=== PATIENT | male | born 1970 | race Caucasian/White ===

== ENCOUNTER 2018-08-21 18:11 | Emergency (ER) | payer OTHER ==
[2018-08-21 19:36] LABS: ABSOLUTE EOSINOPHILS # (AUTO) 0.3 10^3/uL (0.0-0.6); ABSOLUTE LYMPHOCYTES (AUTO) 1.7 10^3/uL (0.5-4.7); ABSOLUTE MONOCYTES (AUTO) 0.6 10^3/uL (0.1-1.4); ABSOLUTE NEUT (AUTO) 5.2 10^3/uL (1.7-8.2); BASOPHILS % (AUTO) 0.6 % (0-2); EOSINOPHILS % (AUTO) 3.3 % (0-6); HEMATOCRIT 40.7 % (37.9-51.0); HEMOGLOBIN 13.9 g/dL (13.5-17.0); LYMPHOCYTES % (AUTO) 22.1 % (13-45); MEAN CORPUSCULAR HEMOGLOBIN 31.5 pg (27.0-33.4); MEAN CORPUSCULAR HGB CONC 34.3 g/dL (32.0-36.0); MEAN CORPUSCULAR VOLUME 92 fl (80-97); MONOCYTES % (AUTO) 7.7 % (3-13); PLATELET COUNT 290 10^3/uL (150-450); RED BLOOD COUNT 4.43 10^6/uL (4.35-5.55); RED CELL DISTRIBUTION WIDTH 12.8 % (11.5-14.0); SEGMENTED NEUTROPHILS % (AUTO) 66.3 % (42-78); TOTAL CELLS COUNTED % (AUTO) 100 %; WHITE BLOOD COUNT 7.8 10^3/uL (4.0-10.5)
[2018-08-21 19:37] LABS: INTERNATIONAL RATION (INR) 0.93; PARTIAL THROMBOPLASTIN TIME 24.5 SEC (23.5-35.8)
[2018-08-21 19:46] LABS: ANION GAP 8 (5-19); BLOOD UREA NITROGEN 18 mg/dL (7-20); CALCIUM 10.2 mg/dL (8.4-10.2); CARBON DIOXIDE 28 mmol/L (22-30); CHLORIDE 106 mmol/L (98-107); GLUCOSE 88 mg/dL (75-110); POTASSIUM 3.8 mmol/L (3.6-5.0)
[2018-08-21 19:47] LABS: ALANINE AMINOTRANSFERASE 40 U/L (21-72); ALBUMIN 4.5 g/dL (3.5-5.0); ALKALINE PHOSPHATASE 53 U/L (38-126); ASPARTATE AMINO TRANSFERASE 35 U/L (17-59); BILIRUBIN,DIRECT 0.4 mg/dL (0.0-0.4); BILIRUBIN,TOTAL 0.6 mg/dL (0.2-1.3)
[2018-08-21 19:48] LABS: TOTAL PROTEIN 7.1 g/dL (6.3-8.2)
--- NOTE | 2018-08-21 19:59 | RADIOLOGY REPORT (SQ) ---
EXAM DESCRIPTION: CT CERVICAL SPINE WITHOUT COMPLETED DATE/TIME: 08/21/2018 7:36 pm REASON FOR STUDY: FALL, INJURY COMPARISON: None. TECHNIQUE: Axial images acquired through the cervical spine without intravenous contrast. Images re viewed with lung, soft tissue and bone windows. Reconstructed coronal and sagittal MPR images review ed. Images stored on PACS. All CT scanners at this facility use dose modulation, iterative reconstruction, and/or weight based d osing when appropriate to reduce radiation dose to as low as reasonably achievable (ALARA). [facility]: Dose Right [facility]: CareDose [facility]: Dose Right [facility]: Teradose 4D [facility]: [employer] RADIATION DOSE: mGy. LIMITATIONS: None. FINDINGS: ALIGNMENT: Anatomic. MINERALIZATION: Normal. VERTEBRAL BODIES: No fractures or dislocation. DISCS: Multilevel disc space narrowing with osteophytes. FACETS, LATERAL MASSES, POSTERIOR ELEMENTS: Facet arthropathy. No fractures. No dislocation. No ac jose findings. HARDWARE: None in the spine. VISUALIZED RIBS: No fractures. LUNG APICES AND SOFT TISSUES: No significant or acute findings. OTHER: No other significant finding. IMPRESSION: CHRONIC DEGENERATIVE CHANGES. NO ACUTE FINDINGS. TECHNICAL DOCUMENTATION: JOB ID: [id number] Quality ID # [id number]: Final reports with documentation of one or more dose reduction techniques (e.g., Au tomated exposure control, adjustment of the mA and/or kV according to patient size, use of iterative reconstruction technique) 2010 [employer]- All Rights Reserved Reading location - IP/workstation name: [email or web address]
--- NOTE | 2018-08-21 20:06 | RADIOLOGY REPORT (SQ) ---
EXAM DESCRIPTION: CT HEAD WITHOUT COMPLETED DATE/TIME: 08/21/2018 7:35 pm REASON FOR STUDY: FALL, INJURY COMPARISON: None. TECHNIQUE: Axial images acquired through the brain without intravenous contrast. Images reviewed wi th bone, brain and subdural windows. Images stored on PACS. All CT scanners at this facility use dose modulation, iterative reconstruction, and/or weight based d osing when appropriate to reduce radiation dose to as low as reasonably achievable (ALARA). [facility]: Dose Right [facility]: CareDose [facility]: Dose Right [facility]: Teradose 4D [facility]: [employer] RADIATION DOSE: mGy. LIMITATIONS: None. FINDINGS: VENTRICLES: Normal size and contour. CEREBRUM: No masses. No hemorrhage. No midline shift. No evidence for acute infarction. Normal gra y/white matter differentiation. No areas of low density in the white matter. CEREBELLUM: No masses. No hemorrhage. No alteration of density. No evidence for acute infarction. EXTRAAXIAL SPACES: No fluid collections. No masses. ORBITS AND GLOBE: No intra- or extraconal masses. Normal contour of globe without masses. CALVARIUM: No fracture. PARANASAL SINUSES: No fluid. Ethmoid and maxillary mucous retention cyst- mucosal thickening. SOFT TISSUES: Frontal swelling -laceration. OTHER: No other significant finding. IMPRESSION: No intracranial hemorrhage or fracture. Frontal swelling -laceration. No radiopaque fo reign body.Ethmoid and maxillary mucous retention cyst- mucosal thickening. EVIDENCE OF ACUTE STROKE: NO. COMMENT: Quality ID # 436: Final reports with documentation of one or more dose reduction techniques (e.g., Automated exposure control, adjustment of the mA and/or kV according to patient size, use of iterative reconstruction technique) TECHNICAL DOCUMENTATION: JOB ID: [id number] [place]-72 2010 [employer]- All Rights Reserved Reading location - IP/workstation name: [email or web address]
[2018-08-21] MEDS ORDERED: LIDOCAINE 1%/EPINEPHRINE INJ 20 ML VIAL INJ ONE (20:07)
[2018-08-21] MEDS ORDERED: DIPH/PERTUSS(ACELL)/TETANUS VAC/PF 0.5 ML SYR (>=10YO) IM ONE (22:23)
[2018-08-21] MEDS ORDERED: SULFAMETHOXAZOLE/TRIMETHOPRIM 800-160 MG TABLET PO ONE (22:25)
[2018-08-21] MEDS ORDERED: CEPHALEXIN 500 MG CAPSULE PO ONE (22:25)
--- NOTE | 2018-08-21 23:02 | RADIOLOGY REPORT (SQ) ---
EXAM DESCRIPTION: XR ELBOW 3 VIEWS, XR FOREARM 2 VIEWS, XR HUMERUS COMPLETED DATE/TME: 08/21/2018 00:00 CLINICAL HISTORY: Pain. 47 years Male, FALL COMPARISON: None. Findings: Mild swelling/bursitis at the right ulnar olecranon. Minimal osteoarthritis. Bones, joints, and soft tissues of the RIGHT XR ELBOW 3 VIEWS, XR FOREARM 2 VIEWS, XR HUMERUS appear otherwise unremarkable. IMPRESSION: Mild swelling/bursitis at the right ulnar olecranon.
--- NOTE | 2018-08-21 23:05 | RADIOLOGY REPORT (SQ) ---
EXAM DESCRIPTION: XR TIBIA FIBULA 2 VIEWS COMPLETED DATE/TME: 08/21/2018 00:00 CLINICAL HISTORY: Pain. 47 years Male, FALL COMPARISON: None. Findings: Screw fixation at the proximal right tibia. Mild swelling at the anterior right lower leg. Moderate tricompartmental osteoarthritis of the right knee. Bones, joints, and soft tissues of the RIGHT XR TIBIA FIBULA 2 VIEWS appear otherwise unremarkable. IMPRESSION: Swelling.
[2018-08-21 23:26] VITALS: BP 156/87
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
== END 2018-08-21 23:34 | disposition home or self-care (01) ==
LOC: ER 18:11
DX: S09.90XA Unspecified injury of head, initial encounter (principal); S01.81XA Laceration without foreign body of other part of head, initial encounter; S46.311A Strain of muscle, fascia and tendon of triceps, right arm, initial encounter; S81.831A Puncture wound without foreign body, right lower leg, initial encounter; W11.XXXA Fall on and from ladder, initial encounter; Z91.013 Allergy to seafood; Z23 Encounter for immunization
CPT/HCPCS: 99284; 90471; 36415; 85025; 85610; 85730; 80053; 73080; 73090; 73060; 73590; 70450; 72125; 90715; 12013; L0120; J3490

== ENCOUNTER 2018-08-30 08:42 | Emergency (ER) | payer OTHER ==
[2018-08-30 08:46] VITALS: BP 130/80
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
== END 2018-08-30 09:32 | disposition home or self-care (01) ==
LOC: ER 08:42
DX: S01.81XD Laceration without foreign body of other part of head, subsequent encounter (principal); X58.XXXD Exposure to other specified factors, subsequent encounter

== ENCOUNTER → 2018-09-14 | Outpatient (CLI) | payer OTHER ==
--- NOTE | 2018-09-15 09:03 | RADIOLOGY REPORT (SQ) ---
EXAM DESCRIPTION: MRI RT UPPER JOINT WITHOUT COMPLETED DATE/TIME: 09/14/2018 8:33 pm REASON FOR STUDY: M25.521 PAIN IN RIGHT ELBOW M25.521 PAIN IN RIGHT ELBOW COMPARISON: Right elbow films 08/21/2018 TECHNIQUE: Right elbow images acquired and stored on PACS. Multiplanar images to include fat sensiti ve sequences as T1, fluid sensitive sequences as T2/STIR, cartilage sensitive sequences as FSPD, and gradient echo sequences. LIMITATIONS: Heterogeneous fat saturation FINDINGS: BONE MARROW: No alteration of signal to suggest marrow replacement or edema. No occult fra cture. No large osteophytes. JOINT EFFUSION: None noted. No loose bodies. ARTICULAR SURFACES: Normal. MEDIAL COLLATERAL LIGAMENT COMPLEX: Intact without edema or tear. MEDIAL EPICONDYLE AND COMMON FLEXOR TENDON: No tendinopathy. No partial or full-thickness tear. LATERAL COLLATERAL LIGAMENT: Intact without edema or tear. LATERAL EPICONDYLE AND COMMON EXTENSOR TENDON: No tendinopathy. No partial or full-thickness tear. LATERAL ULNAR COLLATERAL LIGAMENT: Intact without evidence for tear. BICEPS TENDON: Intact. No partial or full-thickness tendon tear. No muscle edema. TRICEPS TENDON: Full-thickness tear distal triceps tendon. The gap between the tendon and olecranon is 4.4 cm. Minimal if any residual tendon is seen along the olecranon. There is no avulsion fractur e. Moderate fluid in the olecranon bursa ULNAR NERVE: Well-visualized without edema or encroachment. ADJACENT SOFT TISSUES: Overlying subcutaneous edema. Olecranon bursa fluid collection measures at le ast 10 cm in greatest length along the dorsal aspect of the arm OTHER: No other significant finding. IMPRESSION: Full-thickness distal triceps tendon tear. No underlying bony olecranon abnormality. TECHNICAL DOCUMENTATION: JOB ID: [id number] [employer]- All Rights Reserved Reading location - IP/workstation name: [email or web address]
== END ==
LOC: RAD 18:39
PROVIDERS: ATTEND Orthopaedic Surgery
DX: M25.521 Pain in right elbow (principal)

== ENCOUNTER → 2018-11-07 | Outpatient (CLI) | payer OTHER ==
[2018-11-07 17:45] LABS: ABSOLUTE BASOPHILS # (AUTO) 0.1 10^3/uL (0.0-0.2); ABSOLUTE EOSINOPHILS # (AUTO) 0.2 10^3/uL (0.0-0.6); ABSOLUTE LYMPHOCYTES (AUTO) 1.5 10^3/uL (0.5-4.7); ABSOLUTE MONOCYTES (AUTO) 1.7 10^3/uL (0.1-1.4); ABSOLUTE NEUT (AUTO) 13.5 10^3/uL (1.7-8.2); BASOPHILS % (AUTO) 0.3 % (0-2); EOSINOPHILS % (AUTO) 1.2 % (0-6); HEMATOCRIT 39.4 % (37.9-51.0); HEMOGLOBIN 13.3 g/dL (13.5-17.0); LYMPHOCYTES % (AUTO) 9.1 % (13-45); MEAN CORPUSCULAR HEMOGLOBIN 30.8 pg (27.0-33.4); MEAN CORPUSCULAR HGB CONC 33.8 g/dL (32.0-36.0); MEAN CORPUSCULAR VOLUME 91 fl (80-97); MONOCYTES % (AUTO) 10.2 % (3-13); PLATELET COUNT 310 10^3/uL (150-450); RED BLOOD COUNT 4.33 10^6/uL (4.35-5.55); RED CELL DISTRIBUTION WIDTH 13.2 % (11.5-14.0); SEGMENTED NEUTROPHILS % (AUTO) 79.2 % (42-78); TOTAL CELLS COUNTED % (AUTO) 100 %
== END ==
LOC: OD 16:53
PROVIDERS: ATTEND Orthopaedic Surgery
DX: L03.113 Cellulitis of right upper limb (principal)
CPT/HCPCS: 36415; 85025; 85652; 86140

== ENCOUNTER → 2018-11-08 | Outpatient (CLI) | payer OTHER ==
--- NOTE | 2018-11-10 08:58 | RADIOLOGY REPORT (SQ) ---
EXAM DESCRIPTION: MRI RT UPPER JOINT WITHOUT COMPLETED DATE/TIME: 11/08/2018 8:51 pm REASON FOR STUDY: M25.521 PAIN IN RIGHT ELBOW M25.521 PAIN IN RIGHT ELBOW COMPARISON: MRI right elbow 09/14/2018 Right elbow plain films 08/21/2018 TECHNIQUE: Right elbow images acquired and stored on PACS. Multiplanar images to include fat sensit gautam sequences as T1, fluid sensitive sequences as T2/STIR, cartilage sensitive sequences as FSPD, and gradient echo sequences. LIMITATIONS: None. FINDINGS: Patient is post surgical repair of the distal triceps tendon tear. There are multiple tac ks in the olecranon without surrounding marrow edema. Only a few intact fibers of the distal aspect triceps tendon are attached to the olecranon along its radial aspect, best shown on coronal image 21 and sagittal image 16. Nearly the entire triceps tendon exhibits a full-thickness tear with tendon gap of 4 cm on sagittal i mage 20. There is a large fluid collection over the olecranon bursa communicating with the posterior aspect of the elbow joint, measuring 10 cm craniocaudad by 5 cm transverse by 1 cm AP. Diffuse edema is present in the triceps muscle on sagittal STIR images without gross intramuscular he matoma. BONE MARROW: No alteration of signal to suggest marrow replacement or edema. No occult fracture. No l arge osteophytes. ARTICULAR SURFACES: Normal. MEDIAL COLLATERAL LIGAMENT COMPLEX: Intact without edema or tear. MEDIAL EPICONDYLE AND COMMON FLEXOR TENDON: No tendinopathy. No partial or full-thickness tear. LATERAL COLLATERAL LIGAMENT: Intact without edema or tear. LATERAL EPICONDYLE AND COMMON EXTENSOR TENDON: No tendinopathy. No partial or full-thickness tear. LATERAL ULNAR COLLATERAL LIGAMENT: Intact without evidence for tear. BICEPS TENDON: Intact. No partial or full-thickness tendon tear. No muscle edema. ULNAR NERVE: Well-visualized without edema or encroachment. Visualized on axial series 6, images 5-2 1. ADJACENT SOFT TISSUES: Diffuse subcutaneous edema OTHER: No other significant finding. IMPRESSION: Recurrent tear of the triceps tendon with a gap of 4 cm between the tendon and olecranon . Large fluid collection over the dorsal elbow communicates with the joint space TECHNICAL DOCUMENTATION: JOB ID: [id number] [employer]- All Rights Reserved Reading location - IP/workstation name: [email or web address]
== END ==
LOC: RAD 18:57
PROVIDERS: ATTEND Orthopaedic Surgery
DX: S46.311A Strain of muscle, fascia and tendon of triceps, right arm, initial encounter (principal); X58.XXXA Exposure to other specified factors, initial encounter; M25.521 Pain in right elbow

== ENCOUNTER → 2018-11-30 | Outpatient (CLI) | payer OTHER ==
[2018-11-30 10:49] LABS: HEMATOCRIT 39.9 % (37.9-51.0); HEMOGLOBIN 13.4 g/dL (13.5-17.0); MEAN CORPUSCULAR HEMOGLOBIN 30.7 pg (27.0-33.4); MEAN CORPUSCULAR HGB CONC 33.5 g/dL (32.0-36.0); MEAN CORPUSCULAR VOLUME 92 fl (80-97); PLATELET COUNT 370 10^3/uL (150-450); RED BLOOD COUNT 4.34 10^6/uL (4.35-5.55); RED CELL DISTRIBUTION WIDTH 13.9 % (11.5-14.0); WHITE BLOOD COUNT 7.3 10^3/uL (4.0-10.5)
[2018-11-30 11:26] LABS: ABSOLUTE LYMPHOCYTES# (MANUAL) 1.8 10^3/uL (0.5-4.7); ABSOLUTE MONOCYTES # (MANUAL) 0.6 10^3/uL (0.1-1.4); BASOPHILS % (MANUAL) 0 % (0-2); EOSINOPHILS % (MANUAL) 10 % (0-6); LYMPHOCYTES % (MANUAL) 25 % (13-45); MONOCYTES % (MANUAL) 8 % (3-13); SEGMENTED NEUTROPHILS % (MAN) 57 % (42-78); TOTAL CELLS COUNTED 100
[2018-11-30 11:29] LABS: PLATELET COMMENT ADEQUATE; RBC MORPHOLOGY COMMENT NORMO-CYTIC/CHROMIC
[2018-11-30 11:34] LABS: ERYTHROCYTE SEDIMENTATION RATE 16 mm/hr (0-20)
== END ==
LOC: OD 10:17
PROVIDERS: ATTEND Orthopaedic Surgery
DX: T81.49XD Infection following a procedure, other surgical site, subsequent encounter (principal); X58.XXXD Exposure to other specified factors, subsequent encounter
CPT/HCPCS: 36415; 85025; 85652; 86140

== ENCOUNTER → 2018-12-07 | Outpatient (CLI) | payer OTHER ==
[2018-12-07 10:33] LABS: ABSOLUTE BASOPHILS # (AUTO) 0.1 10^3/uL (0.0-0.2); ABSOLUTE EOSINOPHILS # (AUTO) 0.4 10^3/uL (0.0-0.6); ABSOLUTE LYMPHOCYTES (AUTO) 1.3 10^3/uL (0.5-4.7); ABSOLUTE MONOCYTES (AUTO) 0.7 10^3/uL (0.1-1.4); ABSOLUTE NEUT (AUTO) 4.3 10^3/uL (1.7-8.2); BASOPHILS % (AUTO) 0.8 % (0-2); EOSINOPHILS % (AUTO) 6.3 % (0-6); HEMATOCRIT 38.9 % (37.9-51.0); LYMPHOCYTES % (AUTO) 19.3 % (13-45); MEAN CORPUSCULAR HEMOGLOBIN 30.4 pg (27.0-33.4); MEAN CORPUSCULAR HGB CONC 33.4 g/dL (32.0-36.0); MEAN CORPUSCULAR VOLUME 91 fl (80-97); MONOCYTES % (AUTO) 10.9 % (3-13); PLATELET COUNT 252 10^3/uL (150-450); RED BLOOD COUNT 4.27 10^6/uL (4.35-5.55); RED CELL DISTRIBUTION WIDTH 13.7 % (11.5-14.0); SEGMENTED NEUTROPHILS % (AUTO) 62.7 % (42-78); TOTAL CELLS COUNTED % (AUTO) 100 %; WHITE BLOOD COUNT 6.8 10^3/uL (4.0-10.5)
[2018-12-07 11:10] LABS: ERYTHROCYTE SEDIMENTATION RATE 25 mm/hr (0-20)
== END ==
LOC: OD 09:21
PROVIDERS: ATTEND Orthopaedic Surgery
DX: T81.49XD Infection following a procedure, other surgical site, subsequent encounter (principal)
CPT/HCPCS: 36415; 85025; 85652; 86140

== ENCOUNTER → 2018-12-14 | Outpatient (CLI) | payer OTHER ==
[2018-12-14 14:46] LABS: HEMOGLOBIN 13.6 g/dL (13.5-17.0); MEAN CORPUSCULAR HEMOGLOBIN 30.9 pg (27.0-33.4); MEAN CORPUSCULAR HGB CONC 33.9 g/dL (32.0-36.0); MEAN CORPUSCULAR VOLUME 91 fl (80-97); PLATELET COUNT 309 10^3/uL (150-450); RED BLOOD COUNT 4.41 10^6/uL (4.35-5.55); RED CELL DISTRIBUTION WIDTH 13.7 % (11.5-14.0); WHITE BLOOD COUNT 6.6 10^3/uL (4.0-10.5)
[2018-12-14 15:24] LABS: ERYTHROCYTE SEDIMENTATION RATE 21 mm/hr (0-20)
== END ==
LOC: OD 12:19
PROVIDERS: ATTEND Orthopaedic Surgery
DX: T81.49XD Infection following a procedure, other surgical site, subsequent encounter (principal)
CPT/HCPCS: 36415; 85027; 85652; 86140

== ENCOUNTER 2018-12-20 02:31 | Emergency (ER) | payer OTHER ==
[2018-12-20 07:30] VITALS: BP 132/73
[2018-12-20] MEDS ORDERED: PREDNISONE 20 MG TABLET PO ONE (07:57)
[2018-12-20] MEDS ORDERED: FAMOTIDINE 20 MG TABLET PO ONE (07:57)
[2018-12-20] MEDS ORDERED: DIPHENHYDRAMINE HCL 50 MG CAPSULE PO ONE (07:57)
--- NOTE | 2018-12-20 08:00 | ER Document Report ---
ED General - General Chief Complaint: Allergic Reaction Stated Complaint: POSSIBLE ALLERGIC REACTION Time Seen by Provider: 12/20/18 07:53 Primary Care Provider: GEOFFREY LUNA MD [Primary Care Provider] - Follow up as needed TRAVEL OUTSIDE OF THE [place] IN LAST 30 DAYS: No - HPI Notes: Patient is a 48-year-old male who presents emergency department for evaluation after an allergic reaction. He states he received Dalvance yesterday afternoon at about 230. Around 6 PM he started with hives. He denies any facial swelling. He denies any difficulty speaking, breathing, swallowing. He has not tried anything to make himself feel better. Nothing made for bolus. He denies any pain. He has a significant itching. He is currently on the Dalvance for a staph infection in his right elbow. - Related Data Allergies/Adverse Reactions: dalbavancin [From Dalvance] Allergy (Verified 12/20/18 02:56) iodine Allergy (Verified 08/30/18 09:19) peanut oil Allergy (Verified 08/30/18 09:19) shellfish derived Allergy (Verified 08/30/18 09:19) Past Medical History - General Information source: Patient - Social History Smoking Status: Never Smoker Family History: Reviewed & Not Pertinent, COPD Patient has suicidal ideation: No Patient has homicidal ideation: No - Past Medical History Cardiac Medical History: Reports: Hx Hypercholesterolemia Renal/ Medical History: Denies: Hx Peritoneal Dialysis Musculoskeletal Medical History: Reports Hx Musculoskeletal Deformity, Reports Hx Musculoskeletal Trauma Traumatic Medical History: Reports: Hx Fractures - Tib-fib Past Surgical History: Reports: Hx Orthopedic Surgery - 4 knee surg, 1 elbow, Hx Tonsillectomy - Immunizations Immunizations up to date: Yes Hx Diphtheria, Pertussis, Tetanus Vaccination: Yes - August 21, 2018 Review of Systems - Review of Systems Constitutional: No symptoms reported EENT: No symptoms reported Cardiovascular: No symptoms reported Respiratory: No symptoms reported Gastrointestinal: No symptoms reported Genitourinary: No symptoms reported Musculoskeletal: No symptoms reported Skin: See HPI Neurological/Psychological: No symptoms reported Physical Exam - Vital signs Vitals: Temp Pulse Resp BP Pulse Ox 98.1 F 78 16 140/82 H 96 12/20/18 02:57 12/20/18 02:57 12/20/18 02:57 12/20/18 02:57 12/20/18 02:57 - Notes Notes: Vital signs reviewed, please refer to chart. Head is normocephalic, atraumatic. Pupils equal round, reactive to light. No edema of the oropharynx. Neck is supple without meningismus. Heart is regular rate and rhythm. Lungs are clear to auscultation bilaterally. Abdomen is soft, nontender, normoactive bowel sounds throughout. Extremities without cyanosis, clubbing. Posterior calves are nontender. Peripheral pulses are equal. Skin is warm and dry. He has extensive urticaria over all 4 extremities, primarily on the flexor surfaces. Scattered urticaria over the anterior trunk. Patient is awake, alert, neurological exam is nonfocal. Course - Vital Signs Vital signs: Temp Pulse Resp BP Pulse Ox 97.8 F 79 16 132/73 H 100 12/20/18 07:29 12/20/18 07:29 12/20/18 07:29 12/20/18 07:29 12/20/18 07:29 Discharge - Discharge Clinical Impression: Urticaria Allergic reaction to drug Qualifiers: Encounter type: initial encounter Qualified Code(s): T78.40XA - Allergy, unspecified, initial encounter Condition: Stable Disposition: HOME, SELF-CARE Instructions: Acute Allergic Reaction to Drugs ([facility]) Additional Instructions: You need to stop the Dalvance. You need to contact the provider who is prescribing this for you, notify them of the allergic reaction you had, and the need for a different antibiotic. Take all of the prednisone prescribed to you as directed until gone, starting later tonight. Benadryl, Zyrtec, or Claritin as needed for itching. Watch for drowsiness with these medications. Return to the emergency department if you develop worsening or new concerning symptoms of any sort. Referrals: GEOFFREY LUNA MD [Primary Care Provider] - Follow up as needed
== END 2018-12-20 08:39 | disposition home or self-care (01) ==
LOC: ER 02:31
DX: T78.40XA Allergy, unspecified, initial encounter (principal); L50.9 Urticaria, unspecified; Z88.1 Allergy status to other antibiotic agents; Z91.010 Allergy to peanuts; Z91.013 Allergy to seafood
CPT/HCPCS: 99283; J7512

== ENCOUNTER → 2018-12-22 | Outpatient (CLI) | payer OTHER ==
[2018-12-22 15:46] LABS: HEMATOCRIT 40.1 % (37.9-51.0); HEMOGLOBIN 13.3 g/dL (13.5-17.0); MEAN CORPUSCULAR HEMOGLOBIN 30.1 pg (27.0-33.4); MEAN CORPUSCULAR HGB CONC 33.1 g/dL (32.0-36.0); MEAN CORPUSCULAR VOLUME 91 fl (80-97); PLATELET COUNT 413 10^3/uL (150-450); RED BLOOD COUNT 4.41 10^6/uL (4.35-5.55); RED CELL DISTRIBUTION WIDTH 13.9 % (11.5-14.0); WHITE BLOOD COUNT 9.5 10^3/uL (4.0-10.5)
[2018-12-22 16:21] LABS: ERYTHROCYTE SEDIMENTATION RATE 15 mm/hr (0-20)
== END ==
LOC: OD 14:29
PROVIDERS: ATTEND Orthopaedic Surgery
DX: T81.49XD Infection following a procedure, other surgical site, subsequent encounter (principal); X58.XXXD Exposure to other specified factors, subsequent encounter
CPT/HCPCS: 36415; 85027; 85652; 86140

== ENCOUNTER 2018-12-29 11:15 | Day surgery (SDC) | payer OTHER ==
[~2018-12-29 11:15] MED LIST: CEFAZOLIN SODIUM 2 GM in DEXTROSE 5%-WATER 100 ML IV PRN; FENTANYL CITRATE INJ/PF 100 MCG/2 ML AMPUL ONE; MIDAZOLAM 2 MG/2 ML INJ ONE; NORMAL SALINE 1000 ML 1,000 ML IV PRN; PROPOFOL INJ 200 MG/20 ML VIAL IV ONE
[2018-12-29] MEDS ORDERED: BUPIVACAINE HCL 0.25 % INJ/PF (2.5 MG/1 ML) 30 ML VIAL ONE (14:19)
[2018-12-29] MEDS ORDERED: ALBUTEROL SULFATE 0.083% NEB 2.5 MG/3 ML AMPUL NEB ONE ×2 (14:21→15:00)
[2018-12-29] MEDS ORDERED: KETOROLAC TROMETHAMINE 60 MG/2 ML SDV ONE (14:35)
[2018-12-29] MEDS ORDERED: ONDANSETRON HCL INJ/PF 4 MG/2 ML SDV ONE (14:35)
[2018-12-29] MEDS ORDERED: FENTANYL CITRATE INJ/PF 100 MCG/2 ML AMPUL IV PRN ×3 (14:59)
[2018-12-29] MEDS ORDERED: OXYCODONE-ACETAMINOPHEN 5-325 MG TABLET PO PRN ×2 (14:59)
[2018-12-29] MEDS ORDERED: ONDANSETRON HCL INJ/PF 4 MG/2 ML SDV IV PRN (14:59)
[2018-12-29] MEDS ORDERED: DIPHENHYDRAMINE HCL 50 MG/ML VIAL IV PRN (14:59)
[2018-12-29] MEDS ORDERED: MEPERIDINE HCL/PF INJ 25 MG/1 ML DISP.SYRIN IV PRN (14:59)
[2018-12-29] MEDS ORDERED: MORPHINE SULFATE 10 MG/ML INJ IV PRN (14:59)
[2018-12-29] MEDS ORDERED: RINGERS SOLUTION,LACTATED 1,000 ML IV ONE (15:00)
--- NOTE | 2018-12-29 16:13 | RADIOLOGY REPORT (SQ) ---
EXAM DESCRIPTION: PICC INSERTION; FLUORO/CV PLACEMENT; U/S GUIDE FOR VASCULAR ACCESS COMPLETED DATE/TIME: 12/29/2018 12:40 pm REASON FOR STUDY: M71.121 OTHER INFECTIVE BURSITIS, RIGHT ELBOW, T81.49XD INFECTION FOLLOWING; IV AC CESS M71.121 OTHER INFECTIVE BURSITIS, RIGHT ELBOW T81.49XD INFECTION FOLLOWING A PROCEDURE, OTHER SURGICAL SIT COMPARISON: None. FLUOROSCOPY TIME: 20 seconds. 2 images saved to PACS. TECHNIQUE: Fluoroscopic and ultrasound guided PICC placement. LIMITATIONS: None. PROCEDURE: After written consent and assessment were obtained, the patient was brought into the fluo roscopy room and placed supine on the table. Ultrasound evaluation of potential access sites were per formed. After successfully identifying a patent left basilic vein, the left arm was prepped and drape d in a sterile fashion along with the ultrasound probe. The entry site was anesthetized with 1% lidoc blane. A 21 gauge 7 cm needle was advanced through the skin and into the basilic vein under live ultra sound guidance. An ultrasound image was saved to PACS confirming access site. A .018 guide wire was then inserted through the needle and into the venous system. The needle was then removed and an 11 b lade scalpel was used to make a 1cm skin incision. A 5 fr peel-away sheath was advanced over the wir e and into the venous system. A measurement was then made using the existing wire and live fluoroscop ic guidance. The wire was then removed and trimmed. The PICC was advanced through the peel-away sheat h and into the venous system. The peel-away sheath was removed and the catheter was adhered to the pa tients arm with a stat lock. The catheter was then aspirated and flushed and a sterile bandage was pl aced over the access site. A fluoroscopic spot image was saved to PACS confirming the catheter tip w ithin the superior vena cava. IMPRESSION: SUCCESSFUL PLACEMENT OF A 5 FR DUAL LUMEN 42 CM PICC IN THE LEFT BASILIC VEIN. COMMENT: Patient medication list reviewed: Yes- Quality ID# 130:Eligible professional attests to doc umenting in the medical record they obtained, updated, or reviewed the patient's current medications. . Quality ID 145: Final reports for procedures using fluoroscopy that document radiation exposure lelo deb, or exposure time and number of fluorographic images (if radiation exposure indices are not avail able) Quality ID #76: The patient was prepped and draped using maximum sterile barrier technique including cap, mask, sterile gown, sterile gloves, a large sterile sheet, hand hygiene, and 2% Chlorhexidine fo r cutaneous antisepsis. When ultrasound is used, sterile ultrasound techniques are followed requiring sterile gel and sterile probes. TECHNICAL DOCUMENTATION: JOB ID: [id number] [employer]- All Rights Reserved rev-10/01 Reading location - IP/workstation name: [email or web address]
--- NOTE | 2018-12-29 16:14 | Operative Report ---
Operative Report DATE OF SURGERY: 12/29/18 PREOPERATIVE DIAGNOSIS: Right septic olecranon bursitis that is post right tric eps tendon repair POSTOPERATIVE DIAGNOSIS: Same OPERATION: Right olecranon bursa irrigation debridement and arthrotomy irrigation debridement SURGEON: BRENDA REDDY ANESTHESIA: GA TISSUE REMOVED OR ALTERED: Culture x3 COMPLICATIONS: None INTRAOPERATIVE FINDINGS: As expected PROCEDURE: Patient was brought to the OR and given a general anesthetic. Right upper extremity was prepped and draped in the usual orthopedic sterile fashion. Procedural pause was performed which confirmed correct patient, site, procedure, and my initials were present, and everyone agreed. Received 2 g IV Ancef. Prior healed incision was used which was linear over the posterior aspect of the elbow. Fluid was immediately encountered. Cultures x2 were sent. Fluid was then exposed from the joint through the posterior fossa. Then using Rongeur, curettes and 3 L irrigation was used to irrigate the bursa and joint. Prior suture anchors were removed using rondure and a scalpel. Olecranon was rongeured. There is diffuse hyperemic tissue , but no other fluid was encountered. Third culture was sent from the joint. Drain was placed within the posterior olecranon fossa, and skin was closed with 3-0 nylon's with interrupted suture. The cutaneous tissue was infiltrated with 10 cc of 0.5 Marcaine. Wound was dressed with Xeroform 4 x 4's ABD and a posterior slab splint was placed . Drain was sutured in place and taped to the dressing. Patient was brought to the PACU with no immediate complications.
--- NOTE | 2018-12-29 16:26 | Discharge Summary ---
Discharge Summary ([facility]C) - Discharge Final Diagnosis: Right septic olecranon bursa Date of Surgery: 12/29/18 Discharge Date: 12/29/18 Condition: Good Treatment or Instructions: Keep splint in place until follow-up appointment. Keep drain in place until follow-up appointment. Return to [facility] at 8 AM antibiotic infusion. Home health to resume transfusions tomorrow afternoon. Follow-up with Dr. Reddy in 1 week from surgery. Prescriptions: Oxycodone HCl/Acetaminophen [Percocet 5-325 mg Tablet] 1 tab PO Q6 PRN #20 tablet PRN Reason: Pain Scale Of 6 Referrals: BRENDA REDDY MD [Primary Care Provider] - (Follow-up with Dr. Reddy next Wednesday in the [place] office.) Discharge Diet: As Tolerated Discharge Activity: No Lifting Over 10 Pounds, Other Home Care Assistance: Home Health Activities Provided by Home Health Agency: [facility] Report the Following to Your Physician Immediately: Swelling, Warmth, Increased Soreness
[2018-12-29] MEDS ORDERED: NORMAL SALINE 10 ML SDV (AFTER EACH USE) IV PRN (17:30)
[2018-12-29 20:30] VITALS: BP 136/78
[2018-12-29] MEDS ORDERED: NORMAL SALINE 10 ML SDV (SCHEDULED) IV SCH (22:00)
== END 2018-12-29 18:35 | disposition home or self-care (01) ==
LOC: RAD 11:15
PROVIDERS: ATTEND Orthopaedic Surgery
DX: M71.121 Other infective bursitis, right elbow (principal); T81.49XD Infection following a procedure, other surgical site, subsequent encounter; J45.909 Unspecified asthma, uncomplicated
CPT/HCPCS: 87070; 87205; 87075; 87077; 87186; 36569; 77001; 76937; 01710; J2250; J0690; J1885; J3010; J2405; J7060; J2704; J1642; 1710